=== PATIENT | female | born 1990 | race Caucasian/White ===

== ENCOUNTER 2018-12-10 08:20 | Emergency (ER) | payer SELFPAY ==
[~2018-12-10] VITALS: Ht 144.8 cm; Wt 83.3 kg
[2018-12-10 08:21] VITALS: BP 112/65
[2018-12-10] MEDS ORDERED: MELA2.5L PO (08:42)
--- NOTE | 2018-12-10 08:45 | NUR ---
pt reports soft, formed stool this moring with laly blood in stool x1 stool. denies pain or any other symptoms. ER PA to room and conducted visual and digital rectal exam. blanket provided. BP cuff and O2 monitors applied.
--- NOTE | 2018-12-10 08:47 | NUR ---
pt unable to urinate for UA at this time. states "maybe in a few minutes"
--- NOTE | 2018-12-10 09:06 | NUR ---
ED PA INTO ROOM TO PERFORM ANALOSCOPY.
[2018-12-10 09:07] LABS: BASOPHILS # (AUTO) 0.04 x10^3/uL (0-0.1); BASOPHILS % (AUTO) 0 % (0-1); EOSINOPHILS # (AUTO) 0.28 x10^3/uL (0-0.4); EOSINOPHILS % (AUTO) 3 % (1-7); LYMPHOCYTES # (AUTO) 2.72 x10^3/uL (1-3.4); LYMPHOCYTES % (AUTO) 25 % (22-44); MD NO; MEAN CORPUSCULAR HEMOGLOBIN 27.3 pg (27.0-34.8); MEAN CORPUSCULAR HGB CONC 31.9 g/dL (32.4-35.8); MEAN CORPUSCULAR VOLUME 85.5 fL (80-100); MEAN PLATELET VOLUME 8.7 fL (7.4-10.4); MONOCYTES # (AUTO) 0.67 x10^3/uL (0.2-0.8); MONOCYTES % (AUTO) 6 % (2-9); NEUTROPHILS # (AUTO) 7.38 x10^3/uL (1.8-6.8); NEUTROPHILS % (AUTO) 67 % (42-75); PLATELET COUNT 347 x10^3/uL (130-400); RED BLOOD COUNT 4.57 x10^6/uL (3.82-5.3); RED CELL DISTRIBUTION WIDTH 14.3 % (9.6-15.2)
--- NOTE | 2018-12-10 09:11 | NUR ---
pt ambulatory to bathroom with steady gait.
[2018-12-10 09:16] LABS: ALBUMIN 3.2 g/dL (3.4-5.0); ANION GAP 5 mmol/L (5-15); CALCIUM 8.7 mg/dL (8.5-10.1); CHLORIDE 109 mmol/L (98-107)
[2018-12-10 09:22] LABS: ALANINE AMINOTRANSFERASE 30 U/L (12-78); ALKALINE PHOSPHATASE 114 U/L (45-117); BILIRUBIN,TOTAL 0.3 mg/dL (0.2-1.0); CREATININE 0.69 mg/dL (0.55-1.02); TOTAL PROTEIN 7.3 g/dL (6.4-8.2)
[2018-12-10 09:26] LABS: MICROSCOPIC NOT IND
[2018-12-10 09:28] LABS: CULTURE INDICATED? NO
[2018-12-10] MEDS ORDERED: SODIUM CHLORIDE FLUSH 10ML SYR IVF ONE (09:30)
--- NOTE | 2018-12-10 09:41 | NUR ---
pt to ct
== END 2018-12-10 10:29 | disposition home or self-care (01) ==
LOC: ED 08:54
DX: K64.8 Other hemorrhoids (principal); K21.9 Gastro-esophageal reflux disease without esophagitis
CPT/HCPCS: 36415; 74177; 80053; 81003; 84703; 85025; 99284

== ENCOUNTER 2019-03-13 20:36 | Emergency (ER) | payer SELFPAY ==
[~2019-03-13] VITALS: Ht 144.8 cm; Wt 83.1 kg
[~2019-03-13 20:36] MED LIST: MELA2.5L PO
[2019-03-13 20:39] VITALS: BP 121/66
--- NOTE | 2019-03-13 20:47 | NUR ---
PT HERE WITH C/O ITCHING HANDS, BILATERAL. STATES HAPPENED AFTER HER RETURN TO [place], STATES NO RELIEF. PT ALSO STATED INTERMITTENT COUGH. STATED SHE HAD N/V/D WHILE IN [place] BUT RESOLVED PRIOR TO THE END OF HER TRIP.
--- NOTE | 2019-03-13 20:56 | NUR ---
REPORT GIVEN TO PATRICIA ADEN.
[2019-03-13] MEDS ORDERED: FAMOTIDINE 20 MG TABLET PO ONE (21:00)
[2019-03-13] MEDS ORDERED: DIPHENHYDRAMINE 25 MG CAPSULE PO ONE (21:00)
[2019-03-13] MEDS ORDERED: FAMOTIDINE 20 MG TABLET ONE (21:01)
[2019-03-13] MEDS ORDERED: DIPHENHYDRAMINE 25 MG CAPSULE ONE (21:01)
[2019-03-14] MEDS ORDERED: MAALOX/HYOSCYAMINE/LIDOCAINE 45 ML BTL ONE (01:31)
== END 2019-03-13 21:17 | disposition home or self-care (01) ==
LOC: ED 21:12
DX: L29.8 Other pruritus (principal); K21.9 Gastro-esophageal reflux disease without esophagitis
CPT/HCPCS: 99284; J7512; Q0163

== ENCOUNTER 2019-06-21 10:36 | Emergency (ER) | payer OTHER ==
[~2019-06-21] VITALS: Ht 144.8 cm; Wt 81.3 kg
[2019-06-21] MEDS ORDERED: DEXAMETHASONE 4 MG TABLET PO ONE (11:30)
[2019-06-21] MEDS ORDERED: DEXAMETHASONE 4 MG TABLET ONE (11:30)
[2019-06-21] MEDS ORDERED: DEXAMETHASONE 4 MG/ML, 1ML PO ONE (11:30)
[2019-06-21 11:43] LABS: RAPID INFLUENZA A Negative (Negative); RAPID INFLUENZA B Negative (Negative)
== END 2019-06-21 13:10 | disposition home or self-care (01) ==
LOC: ED 13:00
DX: J02.9 Acute pharyngitis, unspecified (principal); R05 Cough; R09.81 Nasal congestion; R68.83 Chills (without fever)
CPT/HCPCS: 71046; 87081; 87400; 87880; 99284

== ENCOUNTER 2019-07-25 19:11 | Emergency (ER) | payer OTHER ==
[~2019-07-25] VITALS: Ht 144.8 cm; Wt 79.7 kg
[2019-07-25 19:13] VITALS: BP 123/80
--- NOTE | 2019-07-25 19:39 | NUR ---
STATES NAUSEA X 1.5 WEEKS. TOOK HOME TEST WHICH "MAY HAVE BEEN POSITIVE, I DONT KNOW". PT WOULD LIKE FURTHER TESTING PER TRIAGE NOTE
--- NOTE | 2019-07-25 19:41 | NUR ---
pt is in bathroom for urine specimen
--- NOTE | 2019-07-25 19:44 | NUR ---
pt explained to Tiffanie MCKNIGHT d/t pt just came in for test . lcark Moreno informed about er doesnt do just do test if no other symptoms. referral was given for pt's center pt understood
[2019-07-25 20:40] LABS: MEAN CORPUSCULAR HEMOGLOBIN 27.8 pg (27.0-34.8); MEAN CORPUSCULAR HGB CONC 32.5 g/dL (32.4-35.8); MEAN CORPUSCULAR VOLUME 85.6 fL (80-100); MEAN PLATELET VOLUME 8.3 fL (7.4-10.4); PLATELET COUNT 394 x10^3/uL (130-400); RED BLOOD COUNT 4.82 x10^6/uL (3.82-5.3); RED CELL DISTRIBUTION WIDTH 15.6 % (9.6-15.2)
[2019-07-25 20:45] LABS: ALBUMIN 3.4 g/dL (3.4-5.0); ANION GAP 4 mmol/L (5-15); CALCIUM 8.9 mg/dL (8.5-10.1); CHLORIDE 107 mmol/L (98-107)
[2019-07-25 20:59] LABS: BASOPHILS # (AUTO) 0.07 x10^3/uL (0-0.1); BASOPHILS % (AUTO) 0 % (0-1); EOSINOPHILS # (AUTO) 0.21 x10^3/uL (0-0.4); EOSINOPHILS % (AUTO) 1 % (1-7); LYMPHOCYTES # (AUTO) 1.79 x10^3/uL (1-3.4); LYMPHOCYTES % (AUTO) 12 % (22-44); MD SCAN; MONOCYTES # (AUTO) 0.78 x10^3/uL (0.2-0.8); MONOCYTES % (AUTO) 5 % (2-9); NEUTROPHILS # (AUTO) 12.18 x10^3/uL (1.8-6.8); NEUTROPHILS % (AUTO) 81 % (42-75)
--- NOTE | 2019-07-25 22:06 | NUR ---
given dc instruction pt understood pt up ambulated to check out
== END 2019-07-25 22:08 | disposition home or self-care (01) ==
LOC: ED 21:48
DX: Z32.01 Encounter for pregnancy test, result positive (principal)
CPT/HCPCS: 36415; 80048; 82040; 84702; 84703; 85025; 99283

== ENCOUNTER 2019-09-23 11:57 | Emergency (ER) | payer MEDICAID ==
[~2019-09-23] VITALS: Ht 144.8 cm; Wt 81.5 kg
[2019-09-23 12:04] VITALS: BP 113/69
--- NOTE | 2019-09-23 13:04 | NUR ---
pt presents to ed with c/o cough and sore throat x 4 days, seeking symptom relief that is safe. pt states she is 14 weeks , denies abd pain/bleeding. no complaints at this time. pt awaiting lab and cxr results, pt had abd shielding wth xray.
[2019-09-23 13:25] LABS: RAPID INFLUENZA A Negative (Negative); RAPID INFLUENZA B Negative (Negative)
== END 2019-09-23 13:38 | disposition home or self-care (01) ==
LOC: ED 13:08
DX: O99.512 Diseases of the respiratory system complicating pregnancy, second trimester (principal); J06.9 Acute upper respiratory infection, unspecified; K21.9 Gastro-esophageal reflux disease without esophagitis; Z3A.14 14 weeks gestation of pregnancy
CPT/HCPCS: 71046; 87081; 87400; 87880; 99284